=== PATIENT | female | born 1955 | race Caucasian/White ===

== ENCOUNTER 2023-02-16 11:06 | Emergency (ER) | payer OTHER ==
[~2023-02-16] VITALS: Ht 165.1 cm; Wt 104.0 kg
[2023-02-16 11:13] VITALS: BP 175/99; PULSE 82; RESP 20; TEMP 98.5; O2SAT 97
[2023-02-16] MEDS ORDERED: CLOP75TA33 MT (12:15)
[2023-02-16] MEDS ORDERED: ASPI-1079 PO (12:15)
[2023-02-16] MEDS ORDERED: ROSU20TA2 MT (12:15)
[2023-02-16] MEDS ORDERED: NEBI5TAB3 MT (12:15)
[2023-02-16] MEDS ORDERED: METF-414 MT (12:15)
[2023-02-16] MEDS ORDERED: PANT20TA17 MT (12:15)
[2023-02-16] MEDS ORDERED: AMLO-498 MT (12:15)
== END 2023-02-16 13:11 | disposition home or self-care (01) ==
LOC: ER 11:06
DX: Z76.0 Encounter for issue of repeat prescription (principal); E11.9 Type 2 diabetes mellitus without complications; I10 Essential (primary) hypertension; Z79.899 Other long term (current) drug therapy
CPT/HCPCS: 99283